=== PATIENT | male | born 1990 | race Caucasian/White ===

== ENCOUNTER 2016-08-18 13:33 | Emergency (ER) | payer SELFPAY ==
[~2016-08-18 13:33] MED LIST: AMOX500C PO; TRAM50TA PO; TYLETAB34 PO
[2016-08-18 13:51] VITALS: BP 131/84; PULSE 85; RESP 20; TEMP 98.5; O2SAT 99
--- NOTE | 2016-08-18 14:06 | PD ---
HPI Chief Complaint: Headache Time Seen by Provider: 14:06 Travel History International Travel<30 days: No Contact w/Intl Traveler<30days: No Traveled to known affect area: No History of Present Illness HPI 26-year-old male presents the emergency department status post contusion to the right side of his head on the door, that his niece opened suddenly hitting him. Patient had sudden onset pain, but denies loss of consciousness, dizziness, significant headache, nausea, vomiting, or other symptoms. Headache is localized to the area continues, and is reported to be a 3/10 unless pushed upon. Patient has no double vision or pain with ocular motion. Patient has no increased pain with clenching of the teeth. Patient has no other injuries or complaints. He has no known drug allergies. PFSH Past Medical History Diminished Hearing: No Social History Alcohol Use: No Tobacco Use: No (E CIG) Substance Use: No Allergies-Medications (Allergen,Severity, Reaction): Coded Allergies: No Known Allergies (Verified , 08/18/16) Reported Meds & Prescriptions Reported Meds & Active Scripts Active Tramadol (Tramadol HCl) 50 Mg Tab 50 Mg PO Q6H PRN Ibuprofen 800 Mg Tab 800 Mg PO Q8H PRN Review of Systems Except as stated in HPI: all other systems reviewed are Neg General / Constitutional: No: Fever Eyes: No: Visual changes HENT: No: Headaches Cardiovascular: No: Chest Pain or Discomfort Respiratory: No: Shortness of Breath Gastrointestinal: No: Abdominal Pain Genitourinary: No: Dysuria Musculoskeletal: No: Pain Skin: No Rash Neurologic: No: Weakness Psychiatric: No: Depression Endocrine: No: Polydipsia Hematologic/Lymphatic: No: Easy Bruising Physical Exam Narrative GENERAL: Patient appears no acute distress. SKIN: Warm and dry. Color. Normal turgor. HEAD: Atraumatic. Normocephalic. Patient has mildly tender area over the right anterior parietal scalp without obvious bony deformity. No other significant findings are noted. EYES: Pupils equal and round. No scleral icterus. No injection or drainage. Ocular motions are equal bilaterally without increased pain. No nystagmus. ENT: No nasal bleeding or discharge. Mucous membranes pink and moist. No dental injury. Pharynx is clear. Airway is patent. NECK: Trachea midline. No JVD. No bony tenderness or step-off. Range of motion is full and nontender. CARDIOVASCULAR: Regular rate and rhythm. RESPIRATORY: No accessory muscle use. Clear to auscultation. Breath sounds equal bilaterally. MUSCULOSKELETAL: Extremities without clubbing, cyanosis, or edema. No obvious deformities. NEUROLOGICAL: Awake and alert. No obvious cranial nerve deficits. Motor grossly within normal limits. Five out of 5 muscle strength in the arms and legs. Normal speech. PSYCHIATRIC: Appropriate mood and affect; insight and judgment normal. Data Data Last Documented VS Vital Signs Date Time Temp Pulse Resp B/P Pulse Ox O2 Delivery O2 Flow Rate FiO2 08/18/16 13:51 98.5 85 20 131/84 99 Orders Ice/Cold Pack (08/18/16 14:11) [facility] Medical Decision Making Medical Screen Exam Complete: Yes Emergency Medical Condition: Yes Differential Diagnosis Scalp contusion. Head injury. Fracture. Narrative Course Patient is mentally stable at time of exam. Based on my history and physical CT exam is not felt warranted at this time. Head injury symptoms are reviewed. Patient is given tramadol 50 mg one every 6 hours when necessary #20. Patient also given ibuprofen 800 mg 3 times daily with food #30. Patient is given ice pack to be used frequently through the day today. Patient return if symptoms worsen as discussed. Diagnosis Primary Impression: Contusion of scalp, initial encounter Patient Instructions: General Instructions, Head Injury (ED), Scalp Contusion in Adults (ED) Med/Other Pt SpecificInfo: Prescription(s) given Scripts Tramadol 50 Mg Tab50 Mg PO Q6H PRN (PAIN) #20 TAB Prov:Alo Sidhu MD 08/18/16 Ibuprofen 800 Mg [id number] Mg PO Q8H PRN (Pain/Inflammation) #30 TAB Prov:Alo Sidhu MD 08/18/16 Disposition: 01 DISCHARGE HOME Condition: Stable Krunal Solares Aug 18, 2016 14:06
[2016-08-18] MEDS ORDERED: IBUP800T23 PO (14:12)
[2016-08-18] MEDS ORDERED: TRAM50TA PO (14:12)
== END 2016-08-18 14:34 | disposition home or self-care (01) ==
LOC: PHEFT 13:33
DX: S00.03XA Contusion of scalp, initial encounter (principal); W20.8XXA Other cause of strike by thrown, projected or falling object, initial encounter
CPT/HCPCS: 99283

== ENCOUNTER 2016-12-13 23:28 | Emergency (ER) | payer SELFPAY ==
[~2016-12-13] VITALS: Ht 165.1 cm; Wt 65.2 kg
[~2016-12-13 23:28] MED LIST changes: -AMOX500C PO; +IBUP800T23 PO; -TYLETAB34 PO
[2016-12-13 23:32] VITALS: BP 132/70; PULSE 78; RESP 18; TEMP 97.7; O2SAT 100
[2016-12-13 23:45] VITALS: BP 132/70; PULSE 78; RESP 18; TEMP 97.7; O2SAT 100
[2016-12-14] MEDS ORDERED: CARBAMIDE PEROXIDE 6.5% OTIC SOLN 15 ML BTL EACH EAR ONE (00:30)
[2016-12-14] MEDS ORDERED: LORazepam 1 MG TAB PO ONE (01:00)
[2016-12-14 01:04] VITALS: BP 122/83; PULSE 70; RESP 18; O2SAT 99
[2016-12-14] MEDS ORDERED: CARB6.5S5 EACH EAR (01:25)
--- NOTE | 2016-12-14 01:26 | PD ---
HPI Chief Complaint: ENT Complaint Time Seen by Provider: 00:06 Travel History International Travel<30 days: No Contact w/Intl Traveler<30days: No Traveled to known affect area: No History of Present Illness HPI 26-year-old male arrives to the ER describing decreased hearing from the left side. Otalgia is reported. He describes occasional dizziness. He's had no fever. He describes a history of cerumen impaction previously. Onset gradual. Duration has been 3-4 days with symptoms worsening tonight leading to the ER visit. PFSH Past Medical History Diminished Hearing: No Tetanus Vaccination: < 5 Years Influenza Vaccination: No Social History Alcohol Use: No Tobacco Use: No (E CIG) Substance Use: No Allergies-Medications (Allergen,Severity, Reaction): Coded Allergies: No Known Allergies (Verified , 12/13/16) Reported Meds & Prescriptions Reported Meds & Active Scripts Active Amoxicillin 500 Mg Cap 500 Mg PO BID 10 Days Debrox Otic Drops (Carbamide Peroxide Otic Drops) 6.5% Soln 5-10 Drop EACH EAR BID PRN up to 4 days. Review of Systems General / Constitutional: No: Fever HENT: Positive: Earache, Other (hearing loss in the left side) Physical Exam Narrative GENERAL: 26-year-old male, well-nourished well-developed no acute distress SKIN: Warm and dry. HEAD: Atraumatic. Normocephalic. EYES: Pupils equal and round. No scleral icterus. No injection or drainage. ENT: No nasal bleeding or discharge. Mucous membranes pink and moist. Left tympanic membrane is obscured by yellow cerumen. There is no tenderness about the mastoid process on either side. No tenderness about the external ear canal. External canal is without erythema swelling or tenderness. The right tympanic membrane is obscured by dark shiny cerumen. The patient can hear rubbing of the fingers on both sides. NECK: Trachea midline. No JVD. CARDIOVASCULAR: Regular rate and rhythm. RESPIRATORY: No accessory muscle use. Clear to auscultation. Breath sounds equal bilaterally. GASTROINTESTINAL: Abdomen soft, non-tender, nondistended. Hepatic and splenic margins not palpable. MUSCULOSKELETAL: Extremities without clubbing, cyanosis, or edema. No obvious deformities. NEUROLOGICAL: Awake and alert. No obvious cranial nerve deficits. Motor grossly within normal limits. Five out of 5 muscle strength in the arms and legs. Normal speech. PSYCHIATRIC: Appropriate mood and affect; insight and judgment normal. Data Data Last Documented VS Vital Signs Date Time Temp Pulse Resp B/P Pulse Ox O2 Delivery O2 Flow Rate FiO2 12/14/16 01:04 70 18 122/83 99 Room Air 12/13/16 23:45 97.7 Vital signs reviewed Orders Carbamide Peroxide 6.5% Otic (Debrox 6.5 (12/14/16 00:30) Lorazepam (Ativan) (12/14/16 01:00) Ondansetron Odt (Zofran Odt) (12/14/16 01:30) MDM Medical Decision Making Medical Screen Exam Complete: Yes Emergency Medical Condition: Yes Differential Diagnosis Cerumen impaction, otitis media, tenderness, mastoiditis, otitis externa Narrative Course An attempt to irrigate the left ear successfully removed a large portion of the cerumen however residual occlusion was observable. On the right side significant cerumen was irrigated however residual occlusion remained. The patient reports decreased hearing on the right side following the procedure which was new and concerning as he had preserved hearing on the right side prior to ER arrival. Approximately 4-5 additional attempts at irrigation were performed on each side. The patient was able to answer questions various volumes and had normal speech throughout the procedure which is consistent with intact hearing however the patient was concerned he may have lost his hearing permanently. Fortunately he is able to appreciate gentle finger rubbing within the region of the ears on each side. He also complained of otalgia and dizziness. Debrox was placed in each ear. Between 1:30 AM and 1:37 AM we discussed the nature of the patient's complaint in the etiology for the variation hearing due to the attempt at cerumen disimpaction with displacement of the cerumen. Throughout the conversation the patient answered all the questions which was reassuring in the sense that he could hear the conversation. At home Debrox instructions discussed. Follow up with ENT discussed. Return precautions discussed. Patient was quite adamant that he should go home with antibiotics. We discussed the indications for which in this case would be fever and otalgia. He agreed to return to the ER if after taking antibiotics there is no improvement within 24-48 hours. The patient was given Ativan for the dizziness and after he subsequently developed nausea Zofran was given. He preferred to at least cerumen removal with Debrox at home. Every reasonable effort to satisfy his expectations was offered. Residual grievance in this case may have been unavoidable nonetheless. Diagnosis Primary Impression: Impacted cerumen of both ears Referrals: Matthew Thompson MD 2 days Additional Instructions: You have a choice when it comes to health care, and we are glad that you chose [facility]. Hopefully, we have met your expectations on today's visit. You are welcome to return to [facility] at any time, as we are committed to meeting the health care needs of our community. Med/Other Pt SpecificInfo: Prescription(s) given Scripts Amoxicillin 500 Mg [id number] Mg PO BID 10 Days Ref 0 Prov:Abhijit Capps MD 12/14/16 Carbamide Peroxide Otic Drops (Debrox Otic Drops)6.5% Soln5-10 Drop EACH EAR BID PRN (Ear Wax Removal) #1 BOTTLE Ref 0 up to 4 days. Prov:Abhijit Capps MD 12/14/16 Disposition: 01 DISCHARGE HOME Condition: Stable Abhijit Capps MD Dec 14, 2016 01:26
[2016-12-14] MEDS ORDERED: ONDANSETRON ODT 4 MG TAB PO ONE (01:30)
[2016-12-14] MEDS ORDERED: AMOX500C PO (01:39)
== END 2016-12-14 01:45 | disposition home or self-care (01) ==
LOC: PHED 23:28
DX: H61.23 Impacted cerumen, bilateral (principal); R42 Dizziness and giddiness
CPT/HCPCS: 99283